=== PATIENT | female | born 1960 | race Asian ===

== ENCOUNTER → 2017-03-15 | Outpatient (CLI) | payer OTHER ==
[~2017-03-15] MED LIST: ACET-66 PO; ATEN25 PO; HYDR25TA PO; LEVO50TA4 PO; SIMV20TA6 PO
== END | disposition home or self-care (01) ==
LOC: EMPHLTH 09:11
PROVIDERS: ATTEND Internal Medicine
DX: R76.11 Nonspecific reaction to tuberculin skin test without active tuberculosis (principal)